=== PATIENT | female | born 2000 | race Two or more races ===

== ENCOUNTER 2020-08-18 20:58 | Observation (INO) | payer SELFPAY ==
[~2020-08-18] VITALS: Ht 167.6 cm; Wt 78.9 kg
[2020-08-18 20:56] VITALS: BP 109/62
[2020-08-18 21:44] LABS: COVID AG,FIA SOURCE NASOPHARYNGEAL
[2020-08-18] MEDS ORDERED: INFLUENZA VIRUS VACCINE QVS 2020-21 (6MO+)/PF 60 MCG/0.5 ML SYRINGE IM ONE (22:15)
[2020-08-18] MEDS ORDERED: PREN1TAB80 PO (23:51)
== END 2020-08-18 23:48 | disposition home or self-care (01) ==
LOC: 4S 20:58
PROVIDERS: ADMIT Obstetrics & Gynecology; ATTEND Obstetrics & Gynecology
DX: O62.9 Abnormality of forces of labor, unspecified (principal); Z20.828 Contact with and (suspected) exposure to other viral communicable diseases; Z3A.40 40 weeks gestation of pregnancy; Z79.899 Other long term (current) drug therapy
CPT/HCPCS: 59025; 80307; 87426; 96360; 96361; 99219

== ENCOUNTER 2020-08-19 23:54 | Inpatient (IN) | payer SELFPAY ==
[~2020-08-19] VITALS: Ht 167.6 cm; Wt 77.1 kg
[2020-08-19 23:39] VITALS: BP 105/60
[~2020-08-19 23:54] MED LIST: PREN1TAB80 PO
[2020-08-20] MEDS ORDERED: LIDOCAINE/PF 1% 30 ML VIAL SQ PRN ×2 (00:15→12:30)
[2020-08-20] MEDS ORDERED: METOCLOPRAMIDE HCL 5 MG/ML 2 ML VIAL IVP PRN (00:15)
[2020-08-20] MEDS ORDERED: OXYTOCIN 30 UNITS/LACT RINGERS 500 ML IV ONE ×2 (00:15→12:30)
[2020-08-20] MEDS ORDERED: RINGERS SOLUTION,LACTATED 1,000 ML IV ONE (00:15)
[2020-08-20] MEDS ORDERED: CITRIC ACID/SODIUM CITRATE 30 ML SOLUTION UDCUP PO PRN (00:15)
[2020-08-20] MEDS: RINGERS SOLUTION,LACTATED 1,000 ML IV SCH ×3 (00:31→07:28)
[2020-08-20 01:18] LABS: BASOPHILS % (AUTO) 0.6 % (0.0-2.0); EOSINOPHILS % (AUTO) 0.3 % (1.0-6.0); HEMATOCRIT 41.4 % (36-46); HEMOGLOBIN 13.8 g/dL (12.0-16.0); LYMPHOCYTES # (AUTO) 2.3 K/uL (1.0-4.8); LYMPHOCYTES % (AUTO) 18.7 % (22.0-44.0); MEAN CORPUSCULAR HEMOGLOBIN 31.7 pg (26.0-34.0); MEAN CORPUSCULAR HGB CONC 33.3 G/dL (31.0-37.0); MEAN CORPUSCULAR VOLUME 95 fL (80-100); MONOCYTES # (AUTO) 0.6 K/uL (0.1-1.0); NEUTROPHILS # (AUTO) 9.4 K/uL (1.8-7.7); NEUTROPHILS % (AUTO) 75.4 % (40.0-70.0); PLATELET COUNT (AUTO)-OB 155 K/uL (150-450); RED BLOOD CELL COUNT(AUTO) 4.35 MIL/uL (4.00-5.20); RED CELL DISTRIBUTION WIDTH 14.5 % (11.5-14.5)
[2020-08-20] MEDS ORDERED: INFLUENZA VIRUS VACCINE QVS 2020-21 (6MO+)/PF 60 MCG/0.5 ML SYRINGE IM ONE (02:00)
[2020-08-20] MEDS ORDERED: ROPIVACAINE HCL/PF 0.2% 100 ML ED ONE (04:26)
[2020-08-20] MEDS ORDERED: ROPIVACAINE HCL/PF 0.2% 100 ML ED PRN (04:30)
[2020-08-20] MEDS ORDERED: AMPICILLIN SODIUM 2 GM/NS 100 ML IV ONE (07:30)
[2020-08-20] MEDS ORDERED: AMPICILLIN SODIUM 1 GM/NS 50 ML IV SCH (11:30)
[2020-08-20] MEDS ORDERED: GLYCERIN/WITCH HAZEL LEAF 40 PADS JAR TP PRN (12:30)
[2020-08-20] MEDS ORDERED: BENZOCAINE 20%/MENTHOL 56 GM SPRAY CANISTER TP PRN (12:30)
[2020-08-20] MEDS ORDERED: IBUPROFEN 800 MG TABLET PO PRN (12:30)
[2020-08-20] MEDS ORDERED: LANOLIN 7 GM OINTMENT TP PRN (12:30)
[2020-08-20] MEDS ORDERED: OxyCODONE HCL/ACETAMINOPHEN 5-325 MG TABLET PO PRN (12:30)
[2020-08-20] MEDS: OxyCODONE HCL/ACETAMINOPHEN 5-325 MG TABLET PO PRN (14:23)
[2020-08-20] MEDS: MAGNESIUM HYDROXIDE SUSPENSION 30 ML UDCUP PO PRN (21:26)
[2020-08-21 07:13] LABS: BASOPHILS % (AUTO) 0.1 % (0.0-2.0); EOSINOPHILS % (AUTO) 0.2 % (1.0-6.0); HEMATOCRIT 39.9 % (36-46); HEMOGLOBIN 13.6 g/dL (12.0-16.0); LYMPHOCYTES # (AUTO) 2.3 K/uL (1.0-4.8); LYMPHOCYTES % (AUTO) 16.7 % (22.0-44.0); MEAN CORPUSCULAR HEMOGLOBIN 32.3 pg (26.0-34.0); MEAN CORPUSCULAR VOLUME 95 fL (80-100); MONOCYTES # (AUTO) 0.9 K/uL (0.1-1.0); MONOCYTES % (AUTO) 6.7 % (2.0-9.0); NEUTROPHILS # (AUTO) 10.6 K/uL (1.8-7.7); NEUTROPHILS % (AUTO) 76.3 % (40.0-70.0); PLATELET COUNT (AUTO)-OB 133 K/uL (150-450); RED CELL DISTRIBUTION WIDTH 14.8 % (11.5-14.5)
[2020-08-21] MEDS: OxyCODONE HCL/ACETAMINOPHEN 5-325 MG TABLET PO PRN (08:30)
[2020-08-21] MEDS: MAGNESIUM HYDROXIDE SUSPENSION 30 ML UDCUP PO PRN (08:43)
== END 2020-08-21 13:15 | disposition home or self-care (01) | DRG 807 ==
LOC: 4S 23:54 → PREOBSVTOIN 08-29 00:04
PROVIDERS: ADMIT Obstetrics & Gynecology Obstetrics; ATTEND Obstetrics & Gynecology Obstetrics
PROC: 10E0XZZ Delivery of Products of Conception, External Approach (ICD-10-PCS; principal; 2020-08-20)
PROC: 0HQ9XZZ Repair Perineum Skin, External Approach (ICD-10-PCS; 2020-08-20)
PROC: 3E0R3BZ Introduction of Anesthetic Agent into Spinal Canal, Percutaneous Approach (ICD-10-PCS; 2020-08-20)
PROC: 00HU33Z Insertion of Infusion Device into Spinal Canal, Percutaneous Approach (ICD-10-PCS; 2020-08-20)
DX: O70.0 First degree perineal laceration during delivery (principal); Z37.0 Single live birth; Z3A.41 41 weeks gestation of pregnancy
CPT/HCPCS: 86850; 86900; 86901; 86923; J0290; J2590; J2795; J7120